=== PATIENT | male | born 2000 | race Hispanic/Latino ===

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

== ENCOUNTER 2022-01-28 13:02 | Emergency (ER) | payer OTHER ==
[2022-01-28] MEDS ORDERED: Benzonatate 100 MG CAP ONE (14:04)
== END 2022-01-28 15:20 | disposition home or self-care (01) ==
LOC: BURERS 13:02
DX: B34.9 Viral infection, unspecified (principal)
CPT/HCPCS: 87804; 99283